=== PATIENT | male | born 1970 | race Caucasian/White ===

== ENCOUNTER 2016-07-14 22:12 | Emergency (ER) | payer OTHER ==
[~2016-07-14] VITALS: Ht 167.6 cm; Wt 104.2 kg
[~2016-07-14 22:12] MED LIST: ASCORBIC ACID500 M3 PO; BACTRIM,SEPT1 TABLET PO; BENADRYL25 MG PO; CYCLOBENZAPRINE10 MG PO; Diabeta,Micronase PO; ENDOCET 5-3251 EACH PO; FLEXERIL10 MG PO; FOLIC ACID1 MG PO; GLUCOPHAGE1000 MG PO; Glucophage PO; HYDROMORPHONE HC4 MG PO; KEFLEX500 MG PO; LIDODERM 5% P1 PATCH TD; LOVENOX40 MG/0.4 SC; LYRICA75 MG PO; MORPHINE SULFA1 DOSE IM; NAPROSYN500 MG PO; NOVOLOG PE100 UNITS/ SC; SENNA PLUS TAB1 EACH PO; THERAGRAN1 TABLET PO; VITAMIN D2000 UNI1 PO; ZOFRAN4 MG PO; oxyCODONE PO
[2016-07-15] MEDS ORDERED: PERCOCET 5/31 TABLET PO (01:39)
[2016-07-15 01:54] VITALS: BP 127/79
== END 2016-07-15 01:55 | disposition home or self-care (01) ==
LOC: EME 22:12
DX: S86.912A Strain of unspecified muscle(s) and tendon(s) at lower leg level, left leg, initial encounter (principal); X50.0XXA Overexertion from strenuous movement or load, initial encounter; Y93.B9 Activity, other involving muscle strengthening exercises
CPT/HCPCS: 73564; 73590; 99281; 99284